=== PATIENT | male | born 1980 | race Caucasian/White ===

== ENCOUNTER 2020-10-31 15:49 | Outpatient (REF) | payer BC, SELFPAY ==
[2020-10-31 18:54] LABS: Prostate Specific Antigen 1.03 ng/mL (<0.05-4.0)
== END 2020-10-31 15:50 | disposition home or self-care (01) ==
LOC: HO.MANLDS 15:49
PROVIDERS: PCP Internal Medicine; Visit Provider Physician Assistant
DX: Z12.5 Encounter for screening for malignant neoplasm of prostate (principal); N40.0 Benign prostatic hyperplasia without lower urinary tract symptoms
CPT/HCPCS: 36415; 84153

== ENCOUNTER 2021-06-25 15:58 | Outpatient (REF) | payer BC, SELFPAY ==
[2021-06-25 20:05] LABS: Alanine Aminotransferase 35 U/L (0-40); Albumin Level 4.4 g/dL (3.5-5.0); Alkaline Phosphatase 44 U/L (39-117); Anion Gap 10 (12-20); Aspartate Amino Transferase 32 U/L (5-37); Bilirubin Total 0.6 mg/dL (0.0-1.0); Blood Urea Nitrogen 16 mg/dL (9-16); Calcium 9.3 mg/dL (8.4-10.2); Carbon Dioxide 28 mmol/L (22-29); Chloride 108 mmol/L (96-108); Estimated Glomerular Filt Rate > 60; Glucose Random 94 mg/dL (60-115); Iron 75 mcg/dL (45-160); Percent Iron Saturation 24 % (15-50); Potassium 4.3 mmol/L (3.3-5.1); Sodium 142 mmol/L (135-145); Total Iron Binding Capacity 309 mcg/dL (228-428); Total Protein 7.2 g/dL (6.5-8.0); Unsaturated Iron Binding 234 ug/dL
[2021-06-25 20:31] LABS: Ferritin 247 ng/mL (20-250)
[2021-06-25 20:33] LABS: Thyroid Stimulating Hormone 1.16 uIU/mL (0.32-4.0); Vitamin D 25-OH Total 50.4 ng/mL (>30)
[2021-06-25 20:37] LABS: Folate 18.3 ng/mL (> or = 4.0); Vitamin B12 557 pg/mL (200-900)
== END 2021-06-25 15:59 | disposition home or self-care (01) ==
LOC: HO.MANLDS 15:58
PROVIDERS: PCP Physician Assistant; Visit Provider Physician Assistant
DX: G25.81 Restless legs syndrome (principal)
CPT/HCPCS: 36415; 80053; 82306; 82607; 82728; 82746; 83540; 84443